=== PATIENT | female | born 1985 | race African-American/Black ===

== ENCOUNTER 2019-07-11 21:46 | Emergency (ER) | payer SELFPAY ==
[2019-07-11 23:00] LABS: Absolute Lymphocytes (CBC) 1.4 K/uL (0.7-4.9); Basophils % 0.5 % (0-1.3); Hematocrit 33.1 % (36.0-45.0); Lymphocytes % 26.1 % (15.3-44.8); MPV 10.3 fL (7.6-11.3); RBC Red Blood Cell Count 3.67 M/uL (3.86-4.86)
[2019-07-11] MEDS ORDERED: KETOROLAC 30 MG/ML INJ ONE (23:02)
[2019-07-11 23:12] LABS: BUN Blood Urea Nitrogen 10 mg/dL (7-18); Bicarbonate 29 mmol/L (21-32); Glucose Level 79 mg/dL (74-106); Potassium 3.6 mmol/L (3.5-5.1); Sodium Level 143 mmol/L (136-145); Troponin (Emerg Dept Use Only) < 0.02 ng/mL (0.0-0.045)
--- NOTE | 2019-07-11 23:19 | ER ---
Nurse's Notes [facility] Name: Jina Forman Age: 34 yrs Sex: Female : 1985 Arrival Date: 07/11/2019 Time: 21:48 Bed 27 Private MD: Diagnosis: Chest pain, unspecified Presentation: 07/10 21:51 Chief complaint: Patient states: Chest pain started an hour ago. Reports headache. ca1 Denies SOB, N/V. Coronavirus screen: Proceed with normal triage. Patient denies a cough. Patient denies shortness of breath or difficulty breathing. Patient denies measured and/or subjective temperature greater than 100.4F prior to today's visit. Patient denies travel on a cruise ship or to a country the [facility] currently lists as an affected area. Patient denies contact with known and/or suspected case of COVID-19. Ebola Screen: Patient negative for fever greater than or equal to 101.5 degrees Fahrenheit, and additional compatible Ebola Virus Disease symptoms Patient denies exposure to infectious person. Patient denies travel to an Ebola-affected area in the 21 days before illness onset. No symptoms or risks identified at this time. Initial Sepsis Screen: Does the patient meet any 2 criteria? No. Patient's initial sepsis screen is negative. Does the patient have a suspected source of infection? No. Patient's initial sepsis screen is negative. Risk Assessment: Do you want to hurt yourself or someone else? Patient reports no desire to harm self or others. Onset of symptoms was July 11, 2019. 21:51 Method Of Arrival: Ambulatory ca1 21:51 Acuity: ROSALEE 3 ca1 Triage Assessment: 22:15 General: Appears in no apparent distress. comfortable, Behavior is calm, cooperative. ls4 Pain: Complains of pain in chest and mid-sternal area Pain currently is 5 out of 10 on a pain scale. Cardiovascular: Denies diaphoresis, fatigue, lightheadedness, nausea, palpitations, shortness of breath, syncope, vomiting. Respiratory: Airway is patent Respiratory effort is even, unlabored, Respiratory pattern is regular, Breath sounds are clear bilaterally. 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 - Social history:: Smoking status: Patient denies any tobacco usage or history of. Screenin:01 Abuse screen: Denies threats or abuse. Denies injuries from another. Nutritional ls4 screening: No deficits noted. Tuberculosis screening: No symptoms or risk factors identified. Fall Risk None identified. Assessment: 23:23 Reassessment: Patient appears in no apparent distress at this time. Patient and/or ls4 family updated on plan of care and expected duration. Pain level reassessed. Patient is alert, oriented x 3, equal unlabored respirations, skin warm/dry/pink. Pain: Complains of pain in chest and mid-sternal area Pain does not radiate. Pain currently is 3 out of 10 on a pain scale. Pain began suddenly. Cardiovascular: No deficits noted. Vital Signs: 21:51 BP 131 / 80; Pulse 70; Resp 16 S; Temp 98(TE); Pulse Ox 100% ; Weight 50.8 kg (R); ca1 Height 5 ft. 6 in. (167.64 cm) (R); Pain 5/10; 23:23 BP 122 / 70; Pulse 71; Resp 18; Temp 98.0(O); Pulse Ox 100% ; Pain 3/10; ls4 21:51 Body Mass Index 18.08 (50.80 kg, 167.64 cm) ca1 ED Course: 21:48 Patient arrived in ED. cl3 21:53 Triage completed. ca1 21:54 Arm band placed on right wrist. ca1 21:55 [facility] Morales [facility]C [facility]. kb 21:55 Zackary Casey MD is Attending Physician. kb 22:01 Patient has correct armband on for positive identification. Bed in low position. Call ls4 light in reach. Side rails up X 1. cardiac monitor technician on. Pulse ox on. NIBP on. 22:01 No provider procedures requiring assistance completed. ls4 22:16 Fely Clement, RN is Primary Nurse. ls4 22:19 Chest Pa And Lat (2 Views) XRAY In Process Unspecified. EDMS 22:28 Initial lab(s) drawn, by me, sent to lab. Inserted saline lock: 20 gauge in right ls4 antecubital area, using aseptic technique. Blood collected. Patient maintains SpO2 saturation greater than 95% on room air. 23:25 IV discontinued, intact, bleeding controlled, No redness/swelling at site. Pressure ls4 dressing applied. Administered Medications: 22:59 Drug: TORadol - Ketorolac 15 mg Route: IVP; Site: right antecubital; ls4 23:20 Follow up: Response: No adverse reaction; Marked relief of symptoms; Pain is decreased ls4 Outcome: 23:18 Discharge ordered by MD. parry 23:26 Discharged to home ambulatory. ls4 23:26 Condition: good 23:26 Discharge instructions given to patient, Instructed on discharge instructions, follow up and referral plans. medication usage, safety practices, Demonstrated understanding of instructions, follow-up care, medications. 23:41 Patient left the ED. sg Signatures: Dispatcher [employer] EDTisha Main, JAN-Bethany MONTOYA-Kit Chaney RN RN sg Stewart, Lisa, RN RN ls4 Gillian Triana RN RN ca1 Emilia Larkin cl3
--- NOTE | 2019-07-11 23:19 | EDPHYS ---
Physician Documentation [facility] Name: Jina Forman Age: 34 yrs Sex: Female : 1985 Arrival Date: 07/11/2019 Time: 21:48 Bed 27 Private MD: ED Physician Zackary Casey HPI: 07/10 22:11 This 34 yrs old Black Female presents to ER via Ambulatory with complaints of Chest kb Pain, Headache. 22:11 The patient or guardian reports chest pain that is located primarily in the substernal kb area. The pain does not radiate. Associated signs and symptoms: The patient has no apparent associated signs or symptoms, Pertinent negatives: cough, dizziness, lightheadedness, palpitations, shortness of breath. The chest pain is described as aching. Duration: The patient or guardian reports a single episode. Modifying factors: The symptoms are alleviated by nothing. the symptoms are aggravated by deep breath, palpation of area. Severity of pain: At its worst the pain was moderate in the emergency department the pain is unchanged. The patient has not experienced similar symptoms in the past. The patient has not recently seen a physician. Pt reports sternal chest pain that started an hour ago. States pain is worse with deep breath and palpation. Denies injury or trauma. Denies cardiac history. Denies shortness of breath, nausea, dizziness, palpitations. . 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 - Social history:: Smoking status: Patient denies any tobacco usage or history of. ROS: 22:10 Constitutional: Negative for fever, chills, and weight loss, Neck: Negative for injury, kb pain, and swelling, Respiratory: Negative for shortness of breath, cough, wheezing, and pleuritic chest pain, Abdomen/GI: Negative for abdominal pain, nausea, vomiting, diarrhea, and constipation, Back: Negative for injury and pain, MS/Extremity: Negative for injury and deformity, Skin: Negative for injury, rash, and discoloration, Neuro: Negative for headache, weakness, numbness, tingling, and seizure. 22:10 Cardiovascular: Positive for chest pain, with cough, with movement, of the mid-sternal area, Negative for edema, orthopnea, palpitations, paroxysmal nocturnal dyspnea. Exam: 22:10 Constitutional: This is a well developed, well nourished patient who is awake, alert, kb and in no acute distress. Head/Face: Normocephalic, atraumatic. Cardiovascular: Regular rate and rhythm with a normal S1 and S2. No gallops, murmurs, or rubs. Normal PMI, no JVD. No pulse deficits. Respiratory: Lungs have equal breath sounds bilaterally, clear to auscultation and percussion. No rales, rhonchi or wheezes noted. No increased work of breathing, no retractions or nasal flaring. Abdomen/GI: Soft, non-tender, with normal bowel sounds. No distension or tympany. No guarding or rebound. No evidence of tenderness throughout. Back: No spinal tenderness. No costovertebral tenderness. Full range of motion. Skin: Warm, dry with normal turgor. Normal color with no rashes, no lesions, and no evidence of cellulitis. MS/ Extremity: Pulses equal, no cyanosis. Neurovascular intact. Full, normal range of motion. Neuro: Awake and alert, GCS 15, oriented to person, place, time, and situation. Cranial nerves II-XII grossly intact. Motor strength 5/5 in all extremities. Sensory grossly intact. Cerebellar exam normal. Normal gait. 22:10 Chest/axilla: Inspection: normal, Palpation: tenderness, that is mild, that is moderate, of the mid-sternal area, that totally reproduces the patient's complaints. Vital Signs: 21:51 BP 131 / 80; Pulse 70; Resp 16 S; Temp 98(TE); Pulse Ox 100% ; Weight 50.8 kg (R); ca1 Height 5 ft. 6 in. (167.64 cm) (R); Pain 5/10; 23:23 BP 122 / 70; Pulse 71; Resp 18; Temp 98.0(O); Pulse Ox 100% ; Pain 3/10; ls4 21:51 Body Mass Index 18.08 (50.80 kg, 167.64 cm) ca1 MDM: 21:55 Patient medically screened. kb 22:10 Data reviewed: vital signs, nurses notes. Data interpreted: Pulse oximetry: on room air kb is 100 %. Interpretation: normal. 23:17 Counseling: I had a detailed discussion with the patient and/or guardian regarding: the kb historical points, exam findings, and any diagnostic results supporting the discharge/admit diagnosis, lab results, radiology results, the need for outpatient follow up, a family practitioner, to return to the emergency department if symptoms worsen or persist or if there are any questions or concerns that arise at home. Response to treatment: the patient's symptoms have resolved after treatment, the patient's pain is gone. 07/10 22:04 Order name: CBC with Diff; Complete Time: 23:05 kb 07/10 22:04 Order name: Basic Metabolic Panel; Complete Time: 23:14 kb 07/10 22:04 Order name: Troponin (emerg Dept Use Only); Complete Time: 23:14 kb 07/10 22:04 Order name: Chest Pa And Lat (2 Views) XRAY kb 07/10 22:04 Order name: EKG; Complete Time: 22:05 kb 07/10 22:04 Order name: IV Start; Complete Time: 23:00 kb 07/10 22:04 Order name: EKG - Nurse/Tech; Complete Time: 23:00 kb Administered Medications: 22:59 Drug: TORadol - Ketorolac 15 mg Route: IVP; Site: right antecubital; ls4 23:20 Follow up: Response: No adverse reaction; Marked relief of symptoms; Pain is decreased ls4 Disposition: 23:42 Co-signature as Attending Physician, Zackary Casey MD. rn Disposition: 07/11/19 23:18 Discharged to Home. Impression: Chest pain, unspecified. - Condition is Stable. - Discharge Instructions: Chest Wall Pain, [id number]. - Medication Reconciliation Form, Thank You Letter, Antibiotic Education, Prescription Opioid Use form. - Follow up: Emergency Department; When: As needed; Reason: Worsening of condition. Follow up: Private Physician; When: 2 - 3 days; Reason: Recheck today's complaints, Continuance of care, Re-evaluation by your physician. Signatures: Dispatcher [facility] Tisha Rivera, RADHA MONTOYA-Kit Chaney RN RN sg Nieto, Roman, MD MD rn Stewart, Lisa, RN RN ls4 Gillian Triana RN RN ca1 Corrections: (The following items were deleted from the chart) 23:41 23:18 07/11/2019 23:18 Discharged to Home. Impression: Chest pain, unspecified. sg Condition is Stable. Forms are Medication Reconciliation Form, Thank You Letter, Antibiotic Education, Prescription Opioid Use. Follow up: Emergency Department; When: As needed; Reason: Worsening of condition. Follow up: Private Physician; When: 2 - 3 days; Reason: Recheck today's complaints, Continuance of care, Re-evaluation by your physician. kb
[2019-07-11 23:47] VITALS: O2SAT 100
[2019-07-11 23:48] VITALS: BP 122/70; TEMP 98
--- NOTE | 2019-07-12 06:58 | RAD REPORT ---
EXAM DESCRIPTION: Anne Pa And Lat (2 Views)07/11/2019 10:20 pm CLINICAL HISTORY: Chest pain COMPARISON: None FINDINGS: The lungs appear clear of acute infiltrate. The heart is normal size. [id number] scoliosis involves the spine IMPRESSION: No acute abnormalities displayed
--- NOTE | 2019-07-12 07:23 | EKG ---
Test Date: 2019-07-11 Test Time: 22:03:03 [employer] Technician: DAQUAN MEASUREMENT RESULTS: Intervals: Rate: 68 CO: 132 QRSD: 86 QT: 364 QTc: 387 [place]: P: 81 CO: 132 QRS: 72 T: 64 INTERPRETIVE STATEMENTS: Normal sinus rhythm Right atrial enlargement Borderline ECG No previous ECG available for comparison Electronically Signed On 07-12-19 07:22:53 CDT by Jeremías Mcmahon
== END 2019-07-11 23:41 | disposition home or self-care (01) ==
LOC: ER 21:46
DX: R07.9 Chest pain, unspecified (principal)
CPT/HCPCS: 36415; 71046; 80048; 84484; 85025; 93005; 96374; 99285